=== PATIENT | male | born 1955 | race Caucasian/White ===

== ENCOUNTER 2020-09-11 09:44 | Outpatient (CLI) | payer OTHER, SELFPAY ==
--- NOTE | ~2020-09-11 | XR_ITS ---
XR abdomen/kub 1V 09/11/2020 11:12 INDICATION: Abdomen pain TECHNIQUE: KUB COMPARISON: None FINDINGS: Bowel gas pattern is normal. Large amount of retained fecal material in the colon. There is no evidence of free air, mass, organomegaly, ascites or obstruction. No abnormal calculi are seen. The bones appear intact. IMPRESSION: 1: Fecal impaction of the colon. No obstruction. Reviewed, dictated and finalized at location B.
--- NOTE | ~2020-09-11 | US_ITS ---
US abdomen limited INDICATION: Abdomen pain PROCEDURE: Realtime right upper abdominal ultrasound. COMPARISON: No prior studies for comparison. FINDINGS: The pancreas is normal without focal mass or pancreatic ductal dilation. Liver echotexture is normal without focal mass or intrahepatic biliary dilatation. There is normal directional flow i n the portal vein. The gallbladder is normal without stones, gallbladder wall thickening or pericholecystic fluid. Comm on bile duct measures 4.8 mm. No sonographic Roach's sign. IMPRESSION: 1: Normal limited abdominal ultrasound. Reviewed, dictated and finalized at location B.
== END 2020-09-11 09:45 | disposition home or self-care (01) ==
LOC: CHSIMG 09:50
PROVIDERS: PCP Nurse Practitioner Family; Visit Provider Nurse Practitioner Family
DX: R10.9 Unspecified abdominal pain (principal)
CPT/HCPCS: 74018; 76705

== ENCOUNTER 2020-09-23 19:56 | Emergency (ER) | payer OTHER, SELFPAY ==
--- NOTE | 2020-09-23 21:25 | ED.ABDPAIN ---
HPI - Abdominal Pain General Chief Complaint: Abdominal Pain Stated Complaint: unable to have a BM, abd pain Time Seen by Provider: 09/23/20 21:25 Source: patient Mode of arrival: ambulatory Limitations: no limitations History of Present Illness HPI narrative: 64-year-old man who was previously well comes in today complaining of left upper and lower abdominal pain which has been on and off for the last 7 months. He is passing small amounts of stool and small amounts of gas daily. Patient states that he saw his primary care doctor on the 11 of September and she did an ultrasound and x-ray which showed a large amount of colonic stool. He states that he has been taking [id number] stool softeners and that he tried an enema 1 time to no affect. He states he occasionally has blood on his bowel movements after having had a fissure. He has not had that for several weeks. He states he has occasional nausea but he has had no vomiting, diarrhea, fever, chills, lightheadedness, or dysuria. He denies prior abdominal surgery. 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 MD elicited complaint: abdominal pain Pertinent past history: constipation Onset (ago): month(s) Pain Consistency: constant Location: LUQ and LLQ Quality: cramping Radiation: none Migration to: no migration Exacerbating factors: nothing Relieving factors: nothing Associated symptoms: nausea Treatments prior to arrival: other ( [id number] stool softeners (pills)) Related Data Allergies Allergy/AdvReac Type Severity Reaction Status Date / Time Penicillins Allergy Unknown Unknown Verified 09/23/20 21:48 Review of Systems Constitutional: Constitutional: Denies chills, Denies fever(s) and Denies weakness ENT: Denies nasal congestion and Denies sore throat Cardiovascular: Cardiovascular: Denies chest pain and Denies radiating jaw, neck or arm pain Respiratory: Respiratory: Denies cough and Denies dyspnea Gastrointestinal: Gastrointestinal: Reports abdominal pain, Reports bloating, Reports constipation, Denies diarrhea, Reports nausea and Denies vomiting Genitourinary: Genitourinary: Denies hematuria, Denies dysuria and Denies urinary frequency Musculoskeletal: Musculoskeletal: Denies back pain, Denies arthralgias and Denies joint swelling Integumentary/Breasts: Skin/Breast: Denies pruritus, Denies erythema and Denies rash Neurologic: Denies vertigo, Denies dizziness and Denies syncope Hematologic/Lymphatic: Hematologic/Lymphatic: Denies easy bleeding and Denies easy bruising Allergic/Immunologic: Allergic/Immunologic: Denies lip swelling and Denies throat swelling REPLACED BY [facility] Social History Social History Smoking status: Never smoker Substance use: never Living arrangements: with family Gender identity (if verbalized by the patient): Male Exam Const: General: healthy appearing and alert Orientation/consciousness: patient oriented x3 Limitations: no limitations Other: [id number] acute distress. Uncomfortabl HENMT: Head: normal to inspection General nose exam: Normal nares present Face and sinus: normal facial exam Mouth: Yes moist mucous membranes Throat: posterior oropharynx normal Eyes: Conjunctivae: conjunctivae normal Pupils: Equal, round and reactive pupils present EOM: EOMs intact bilaterally Resp: Effort & Inspection: normal respiratory effort and not labored Auscultation: clear to auscultation bilaterally, no rales, no rhonchi and no wheezes Cardio: Rate: regular rate Rhythm: regular rhythm Heart sounds: no murmurs GI: GI Palp: Yes Soft to palpation and Yes Tenderness to palpation present (GI) ( mild tenderness palpation of the left lower quadrant. Is mildly distende.) Percussion: Yes tympanic to percussion ( mildly) Auscultation: normal bowel sounds Other: There was a very small amount of soft brown stool in the vault. Normal sphincter tone. No masses. No
[2020-09-23 21:27] VITALS: BP 162/82; PULSE 86; RESP 20; TEMP 36.7; O2SAT 98
[2020-09-23 21:54] VITALS: BP 162/82; PULSE 80; RESP 16; TEMP 36.7; O2SAT 98
[2020-09-23 21:58] LABS: Occult Blood Positive (Negative)
== END 2020-09-23 21:59 | disposition home or self-care (01) ==
PROVIDERS: Emergency Provider Emergency Medicine; PCP Nurse Practitioner Family
DX: K59.00 Constipation, unspecified (principal)
CPT/HCPCS: 82272; 99283